=== PATIENT | male | born 1980 | race African-American/Black ===

== ENCOUNTER 2017-05-02 20:14 | Emergency (ER) | payer OTHER ==
[~2017-05-02] VITALS: Ht 175.3 cm; Wt 75.0 kg
[~2017-05-02 20:14] MED LIST: AMOX1TAB10 PO; IBUP400T22 PO
[2017-05-02 20:41] VITALS: Ht 175.3 cm; Wt 75.0 kg
[2017-05-03] MEDS ORDERED: SOD CHLORIDE 0.9% 1,000 ML IV STA (00:42)
[2017-05-03] MEDS ORDERED: morphine 2 MG INJ IV STA (00:42)
[2017-05-03] MEDS ORDERED: ONDANSETRON 4 MG INJ IV STA (00:42)
--- NOTE | 2017-05-03 01:01 | ERD ---
ER Documentation Chief Complaint Date/Time DATE: 05/03/17 TIME: 00:59 Chief Complaint c/o right sided abd pain x 5 days. SB x 2 days. Speaking in full sentence HPI 37-year-old male presents to emergency department for complaints of right flank pain radiating to the right upper quadrant for 5 days. Patient complains of shortness of breath whenever taking a deep breath because of the pain. Patient describes the pain as throbbing, 6/10 scale, not better or worse with anything. Patient denies any nausea vomiting diarrhea or constipation. Patient denies any fever or chills. ROS All systems reviewed and are negative except as per history of present illness. Medications Home Meds Active Scripts Ibuprofen* (Motrin*) 400 Mg Tab, 400 MG PO Q6, #15 TAB Prov:ALDAIR WILLS NP 10/02/15 Amox Tr/Potassium Clavulanate (Amox Tr-K Clv 875-125 Mg Tab) 1 Tab Tablet, 1 TAB PO BID for 7 Days, TAB Prov:ALDAIR WILLS NP 10/02/15 Allergies Allergies: Coded Allergies: No Known Allergy (Unverified , 05/03/17) PMhx/Soc Hx Alcohol Use: Yes Hx Substance Use: No Hx Tobacco Use: Yes FmHx Family History: No coronary disease, No diabetes, No other Physical Exam Vitals Vital Signs Date Time Temp Pulse Resp B/P Pulse Ox O2 Delivery O2 Flow Rate FiO2 05/02/17 20:41 98.0 110 18 133/90 97 Physical Exam GENERAL: The patient is well developed and appropriate for usual state of health, in no apparent distress. CHEST: Clear to auscultation bilaterally. There are no rales, wheezes or rhonchi. HEART: Regular rate and rhythm. No murmurs, clicks, rubs or gallops. No S3 or S4. ABDOMEN: Soft, nontender and nondistended. Good bowel sounds. No rebound or guarding. No gross peritonitis. No gross organomegaly or masses. No Sheffield sign or McBurney point tenderness. BACK: No midline or flank tenderness. EXTREMITIES: Equal pulses bilaterally. There is no peripheral clubbing, cyanosis or edema. No focal swelling or erythema. Full range of motion. Grossly neurovascularly intact. NEURO: Alert and oriented. Cranial nerves 2-12 intact. Motor strength in all 4 extremities with 5/5 strength. Sensation grossly intact. Normal speech and gait. SKIN: There is no apparent rash or petechia. The skin is warm and dry. HEMATOLOGIC AND LYMPHATIC: There is no evidence of excessive bruising or lymphedema. No gross cervical, axillary, or inguinal lymphadenopathy. Result Diagram: 05/03/17 0050 05/03/17 005 Results 24 hrs Laboratory Tests Test 05/03/17 00:50 White Blood Count 9.310^3/ul Red Blood Count 5.0810^6/ul Hemoglobin 16.0g/dl Hematocrit 48.0% Mean Corpuscular Volume 94.5fl Mean Corpuscular Hemoglobin 31.5pg Mean Corpuscular Hemoglobin Concent 33.3g/dl Red Cell Distribution Width 13.4% Platelet Count 48058^3/UL Mean Platelet Volume 10.1fl Neutrophils % 44.6% Lymphocytes % 44.4% Monocytes % 6.2% Eosinophils % 3.7% Basophils % 0.6% Nucleated Red Blood Cells % 0.0/100WBC Neutrophils # 4.210^3/ul Lymphocytes # 4.110^3/ul Monocytes # 0.610^3/ul Eosinophils # 0.310^3/ul Basophils # 0.110^3/ul Nucleated Red Blood Cells # 0.010^3/ul Urine Color YELLOW Urine Clarity CLEAR Urine pH 5.0 Urine Specific [place] 1.018 Urine Ketones NEGATIVEmg/dL Urine Nitrite NEGATIVEmg/dL Urine Bilirubin NEGATIVEmg/dL Urine Urobilinogen NEGATIVEmg/dL Urine Leukocyte Esterase 2+Jolene/ul Urine Microscopic RBC 15/HPF Urine Microscopic WBC 25/HPF Urine Bacteria FEW/HPF Urine Mucus FEW/HPF Urine Hemoglobin 3+mg/dL Urine Glucose NEGATIVEmg/dL Urine Total Protein NEGATIVEmg/dl Sodium Level 148mmol/L Potassium Level 3.9mmol/L Chloride Level 108mmol/L Carbon Dioxide Level 26mmol/L Anion Gap 18 Blood Urea Nitrogen 10mg/dl Creatinine 1.46mg/dl Glucose Level 95mg/dl Calcium Level 10.0mg/dl Total Bilirubin 0.1mg/dl Direct Bilirubin 0.00mg/dl Indirect Bilirubin 0.1mg/dl Aspartate Amino Transf (AST/SGOT) 49IU/L Alanine Aminotransferase (ALT/SGPT) 59IU/L Alkaline Phosphatase 100IU/L Total Protein 8.6g/dl Albumin 4.4g/dl Globulin 4.20g/dl Albumin/Globulin Ratio 1.04 Lipase 188U/L Current Medications Medications (Trade) Dose Ordered Sig/Gema Route PRN Reason Start Time Stop Time Status Last Admin Dose Admin Sodium Chloride (NS) 1,000 ml @ 1,000 mls/hr Q1H STAT IV 05/03/17 00:42 05/03/17 01:41 DC 05/03/17 01:01 Morphine Sulfate (morphine) 2 mg ONCE STAT IV 05/03/17 00:42 05/03/17 00:44 DC 05/03/17 01:01 Ondansetron HCl (Zofran Inj) 4 mg ONCE STAT IV 05/03/17 00:42 05/03/17 00:44 DC 05/03/17 01:01 Patient was given medication for pain here in emergency department, after treatment, patient verbalized feeling much better. Patient's pain is improved. Normal saline IV bolus was given here in emergency department for rehydration, patient tolerated IV fluids. PROCEDURE: CT Abdomen and Pelvis without contrast. CLINICAL INDICATION: Pain. TECHNIQUE: CT scan of the abdomen and pelvis was performed on a multidetector slice CT scanner. No intravenous contrast material was utilized. Sagittal and coronal reformatted images were obtained from the axial source images. Images were reviewed on a high-resolution PACS workstation. Exam CTDlvol = 8.7 mGy and DLP = 528 Gy-cm. One of the following 3 dose reduction techniques were used: Automated exposure control; adjustment of the mA and/or kV according to patient size; or use of iterative reconstruction technique. COMPARISON: None. FINDINGS: There is a 3.2 x 1.9 mm calculus within the urinary bladder centered to the right of midline. Kidneys are normal in appearance without hydronephrosis, mass or calculus. There is no perinephric collection. Ureters are of normal caliber and without evidence for an obstructing calculus. The urinary bladder is partially contracted with nonspecific wall thickening... There is no obstruction or ileus. There is a small periumbilical fat-containing hernia. The appendix is visualized and normal in size. There is no evidence for diverticulitis. There is no free fluid. The liver is overall normal in size. No intrahepatic lesions are identified. The gallbladder is normal in appearance. There is no definite biliary ductal dilation. Pancreas is normal in appearance. The spleen is unremarkable.. There are no adrenal masses. The aorta is normal caliber. Limited evaluation of the lung bases is unremarkable. The bones are unremarkable. IMPRESSION: 1. Calculus within the urinary bladder consistent with a passed calculus. No hydronephrosis, hydroureter or obstructing calculus of examination. Nonspecific urinary bladder wall thickening. 2. No evidence for appendicitis. 3. No evidence for diverticulitis. 4. No bowel obstruction or ileus. 5. Otherwise negative. RPTAT: HMVK .Rhys Lopez MD, Date Time Electronically viewed and signed by .Rhys Lopez MD, on 05/03/2017 02:16 .K/ CC: HEIDY DANIEL PSYCHIATRIC TECHNICIAN ASSISTANT Procedures/MDM Medical Decision Making: This was likely is consistent with renal colic, there is a passed stone noted in the bladder. Patient also has urinary tract infection and will be treated. no symptoms of any septic stone. No obstructive uropathy noted. There is low suspicion for abdominal emergencies at this time. Patients abdominal exam is normal at this time. Patients radiology exam does not show any abdominal emergencies at this time. There is low suspicion for appendicitis, cholecystitis, abdominal aortic aneurysms or peritonitis at this time. There is low suspicion for sepsis. Patient appears well and is hemodynamically stable. Disposition: Home. Condition: Stable Prescription Duncan, Pyridium, tamsulosin, ciprofloxacin Instructions: Patient is advised to take medications as prescribed. Patient is advised to rest, increase fluid intake and do brat diet for next 1-2 days and progress as tolerated. Patient is advised that if symptoms are worse, severe abdominal pain, uncontrolled vomiting, high fever, severe flank pain, worst signs and symptoms, to return to the emergency department immediately. Otherwise, patient can follow up with primary care doctor in 5-7 days. Disclaimer: Inadvertent spelling and grammatical errors are likely due to EHR/ dictation software use and do not reflect on the overall quality of patient care. Also, please note that the electronic time recorded on this note does not necessarily reflect the actual time of the patient encounter. Departure Diagnosis: Primary Impression: Renal colic Additional Impression: UTI (urinary tract infection) Urinary tract infection type: acute cystitis Hematuria presence: with hematuria Qualified Code: N30.01 - Acute cystitis with hematuria Condition: Stable Patient Instructions: Kidney Stone, Passed, Understanding Urinary Tract Infections (UTIs) Additional Instructions: Patient is advised to take medications as prescribed. Patient is advised to rest , increase fluid intake and do brat diet for next 1-2 days and progress as tolerated. Patient is advised that if symptoms are worse, severe abdominal pain , uncontrolled vomiting, high fever, severe flank pain, worst signs and symptoms , to return to the emergency department immediately. Otherwise, patient can follow up with primary care doctor in 5-7 days. HEIDY DANIEL NP May 03, 2017 01:01
[2017-05-03 01:18] LABS: BASOPHIL # 0.1 10^3/ul (0.0-0.1); BASOPHILS % 0.6 % (0.0-2.0); EOSINOPHILS # 0.3 10^3/ul (0.0-0.5); EOSINOPHILS % 3.7 % (0.0-7.0); LYMPHOCYTES # 4.1 10^3/ul (0.8-2.9); LYMPHOCYTES % 44.4 % (15.0-51.0); MEAN CORPUSCULAR HEMOGLOBIN 31.5 pg (29.0-33.0); MEAN CORPUSCULAR HGB CONC 33.3 g/dl (32.0-37.0); MEAN CORPUSCULAR VOLUME 94.5 fl (82.0-101.0); MEAN PLATELET VOLUME 10.1 fl (7.4-10.4); MONOCYTE # 0.6 10^3/ul (0.3-0.9); MONOCYTES % 6.2 % (0.0-11.0); NEUTROPHIL # 4.2 10^3/ul (1.6-7.5); NEUTROPHILS % 44.6 % (39.0-77.0); PLATELET COUNT 298 10^3/UL (140-415); RED BLOOD COUNT 5.08 10^6/ul (4.70-6.10); RED CELL DISTRIBUTION WIDTH 13.4 % (11.5-14.5); WHITE BLOOD COUNT 9.3 10^3/ul (4.8-10.8)
[2017-05-03 01:24] LABS: ADD UMIC YES; UR ASCORBIC ACID NEGATIVE (NEGATIVE); UR BACTERIA FEW /HPF (NONE SEEN); UR BILIRUBIN (Dip) NEGATIVE (NEGATIVE); UR BLOOD (Dip) 3+ mg/dL (NEGATIVE); UR CLARITY CLEAR (CLEAR); UR COLOR YELLOW (YELLOW); UR GLUCOSE (Dip) NEGATIVE (NEGATIVE); UR KETONES (Dip) NEGATIVE (NEGATIVE); UR LEUKOCYTE ESTERASE (Dip) 2+ Leu/ul (NEGATIVE); UR MUCUS FEW /HPF (NONE SEEN); UR NITRITE (Dip) NEGATIVE (NEGATIVE); UR RBC 15 /HPF (0-5); UR SPECIFIC GRAVITY (Dip) 1.018 (1.003-1.030); UR TOTAL PROTEIN (Dip) NEGATIVE (NEGATIVE); UR UROBILINOGEN (Dip) NEGATIVE (NEGATIVE)
[2017-05-03 01:59] LABS: ALBUMIN 4.4 g/dl (3.3-4.9); ALBUMIN/GLOBULIN RATIO 1.04; BILIRUBIN,INDIRECT 0.1 mg/dl (0-1.1); BILIRUBIN,TOTAL 0.1 mg/dl (0.2-1.3); CREATININE 1.46 mg/dl (0.61-1.24); POTASSIUM 3.9 mmol/L (3.5-5.1); TOTAL PROTEIN 8.6 g/dl (6.1-8.1)
--- NOTE | 2017-05-03 02:16 | RADRPT ---
PROCEDURE: CT Abdomen and Pelvis without contrast. CLINICAL INDICATION: Pain. TECHNIQUE: CT scan of the abdomen and pelvis was performed on a multidetector slice CT scanner. No intravenous contrast material was utilized. Sagittal and coronal reformatted images were obtained fr om the axial source images. Images were reviewed on a high-resolution PACS workstation. Exam CTDlvol = 8.7 mGy and DLP = 528 Gy-cm. One of the following 3 dose reduction techniques were used: Automate d exposure control; adjustment of the mA and/or kV according to patient size; or use of iterative re construction technique. COMPARISON: None. FINDINGS: There is a 3.2 x 1.9 mm calculus within the urinary bladder centered to the right of midline. Kidney s are normal in appearance without hydronephrosis, mass or calculus. There is no perinephric collect ion. Ureters are of normal caliber and without evidence for an obstructing calculus. The urinary bl adder is partially contracted with nonspecific wall thickening... There is no obstruction or ileus. There is a small periumbilical fat-containing hernia. The appendix is visualized and normal in size. There is no evidence for diverticulitis. There is no free fluid. The liver is overall normal in size. No intrahepatic lesions are identified. The gallbladder is norm al in appearance. There is no definite biliary ductal dilation. Pancreas is normal in appearance. Th e spleen is unremarkable.. There are no adrenal masses. The aorta is normal caliber. Limited evaluation of the lung bases is unremarkable. The bones are unremarkable. IMPRESSION: 1. Calculus within the urinary bladder consistent with a passed calculus. No hydronephrosis, hydrou reter or obstructing calculus of examination. Nonspecific urinary bladder wall thickening. 2. No evidence for appendicitis. 3. No evidence for diverticulitis. 4. No bowel obstruction or ileus. 5. Otherwise negative. RPTAT: HMVK .Rhys Lopez MD, Date Time Electronically viewed and signed by .Rhys Lopez MD, MD on 05/03/2017 02:16 .K/
[2017-05-03] MEDS ORDERED: IBUP-1542 PO (02:28)
[2017-05-03] MEDS ORDERED: TAMS-14 PO (02:28)
[2017-05-03] MEDS ORDERED: HYDR-906 PO (02:28)
[2017-05-03] MEDS ORDERED: CIPR500T4 PO (02:28)
[2017-05-03 02:52] VITALS: BP 130/83; PULSE 95; RESP 18; TEMP 97.7
== END 2017-05-03 02:52 | disposition home or self-care (01) ==
LOC: FTE 20:14
DX: N23 Unspecified renal colic (principal); N30.01 Acute cystitis with hematuria
CPT/HCPCS: 36415; 74176; 80053; 81001; 83690; 85025; 96361; 96374; 96375; J2270; J2405; J7030; Z7502